=== PATIENT | male | born 1990 | race Caucasian/White ===

== ENCOUNTER 2022-12-02 16:33 | Emergency (ER) | payer OTHER ==
[2022-12-02] MEDS ORDERED: Sodium Chloride 0.9% 1,000 ML IV ONE ×2 (16:49→17:41)
[2022-12-02] MEDS ORDERED: Sodium Chloride 0.9% 10 ML Syringe FLUSH PRN (16:49)
[2022-12-02 17:07] LABS: BASOPHILS ABSOLUTE AUTO 0.07 K/mm3 (0.01-0.08); BASOPHILS PERCENT AUTO 0.5 % (0.1-1.2); EOSINOPHILS ABSOLUTE AUTO 0.09 K/mm3 (0.04-0.54); EOSINOPHILS PERCENT AUTO 0.6 (0.8-7.0); HEMATOCRIT 52.3 % (40.1-51.0); HEMOGLOBIN 18.3 gm/dl (13.7-17.5); IMMATURE GRAN ABSOLUTE AUTO 0.04 K/mm3 (0.00-0.10); IMMATURE GRAN PERCENT AUTO 0.3 % (<=1.0); LYMPHOCYTES ABSOLUTE AUTO 4.05 K/mm3 (1.32-3.57); LYMPHOCYTES PERCENT AUTO 28.7 % (21.8-53.1); MEAN CORPUSCULAR HEMOGLOBIN 29.6 pg (25.7-32.2); MEAN CORPUSCULAR VOLUME 84.6 fl (79.0-92.2); MONOCYTES PERCENT AUTO 9.9 % (5.3-12.2); NEUTROPHILS ABSOLUTE AUTO 8.46 K/mm3 (1.78-5.38); PLATELET COUNT,PLT 381 K/mm3 (163-337); RED BLOOD CELL COUNT 6.18 M/mm3 (4.63-6.08); WHITE BLOOD CELL COUNT,WBC 14.11 K/mm3 (4.23-9.07)
[2022-12-02] MEDS ORDERED: Ondansetron 4 MG/2 ML SDV IVPUSH ONE (17:24)
[2022-12-02 17:25] LABS: A/G RATIO 1.4 (1-2); ALBUMIN 5.7 g/dl (3.4-5.0); ANION GAP 19.1 (5-15); CALCIUM 11.2 mg/dL (8.5-10.1); CREATININE 2.3 mg/dL (0.7-1.3); EST CRCL DRUG DOSING (CG) 40.84 mL/min; POTASSIUM,K 4.1 mEq/L (3.5-5.1); PROTEIN TOTAL,TP 9.9 g/dl (6.4-8.2)
[2022-12-02 19:58] LABS: A/G RATIO 1.4 (1-2); ALBUMIN 4.1 g/dl (3.4-5.0); ANION GAP 14.9 (5-15); BILIRUBIN TOTAL 0.6 mg/dL (0.2-1.0); BUN/CREATININE RATIO 20.7 (14-18); CREATININE 1.5 mg/dL (0.7-1.3); EST CRCL DRUG DOSING (CG) 62.62 mL/min; POTASSIUM,K 3.9 mEq/L (3.5-5.1); PROTEIN TOTAL,TP 7.1 g/dl (6.4-8.2)
[2022-12-02 20:10] LABS: CALCIUM 8.8 mg/dL (8.5-10.1)
== END 2022-12-02 20:57 | disposition home or self-care (01) ==
LOC: JD.ED 16:33
DX: T67.5XXA Heat exhaustion, unspecified, initial encounter (principal); Z88.0 Allergy status to penicillin
CPT/HCPCS: 36415; 80053; 83735; 85025; 96361; 96374; 99284; J2405; J3490; J7030